=== PATIENT | female | born 1995 | race Caucasian/White ===

== ENCOUNTER 2018-03-08 10:40 | Emergency (ER) | payer MEDICAID ==
[2018-03-08 10:51] VITALS: RESP 18; TEMP 98.1; O2SAT 100
--- NOTE | 2018-03-08 11:42 | ED PDOC ---
HPI: Chest Pain Time Seen by Provider: 03/08/18 10:58 Chief Complaint (Nursing): Chest Pain Chief Complaint (Provider): chest pain History Per: Patient History/Exam Limitations: clinical condition Onset/Duration Of Symptoms: Days (2 weeks) Current Symptoms Are (Timing): Intermittent Episodes Quality: "Pain" Additional Complaint(s): 22 year old female with a history of hypothyroidism presents to the ED complaining of intermittent chest pain onset for 2 weeks. States the pain does not radiate anywhere and it is not associated with exertion. Reports of associated symptoms of shortness of breath when chest pain becomes worse. Denies dizziness, cough, palpitation, leg swelling or control pills. PMD: Sonja Lewis Past Medical History Reviewed: Historical Data, Nursing Documentation, Vital Signs Vital Signs: Last Vital Signs Temp 98.1 F 03/08/18 10:49 Pulse 68 03/08/18 14:12 Resp 18 03/08/18 14:12 BP 109/65 03/08/18 14:12 Pulse Ox 100 03/08/18 14:12 - Medical History PMH: Hyperthyroidism, Hypothyroidism - Surgical History Surgical History: No Surg Hx - Family History Family History: States: Unknown Family Hx - Social History Current smoker - smoking cessation education provided: No Alcohol: None Drugs: Denies - Immunization History Hx Tetanus Toxoid Vaccination: No Hx Influenza Vaccination: No Hx Pneumococcal Vaccination: No - Home Medications Home Medications: Ambulatory Orders Medication Instructions Recorded oxyCODONE/Acetaminophen [Percocet 1 tab PO QID PRN #10 tab 08/20/14 5/325 mg Tab] - Allergies Allergies/Adverse Reactions: Allergies Allergy/AdvReac Type Severity Reaction Status Date / Time No Known Allergies Allergy Verified 03/08/18 10:49 PARKER Risk Score for UA/NSTEMI - PARKER Risk Score Age > 64: NO 3 or more CAD Risk Factors: NO Known CAD (Stenosis greater than 50%): NO Aspirin use in past 7 days: NO Severe Angina: NO EKG ST changes greater than 0.5mm: NO Positive Cardiac Marker: NO PARKRE Score: 0 Risk %: 5% Wells Criteria for PE - Wells Criteria for Pulmonary Embolism Clinical Signs and Symptoms of DVT: No P.E is #1 Diagnosis, or Equally Likely: No Heart Rate >100: No Immobilization at least 3 days;Surgery previous 4 weeks: No Previous, objectively diagnosed PE or DVT: No Hemoptysis: No Malignancy w/treatment within 6 months, or palliative: No Total Score: 0 Review of Systems ROS Statement: Except As Marked, All Systems Reviewed And Found Negative Cardiovascular: Positive for: Chest Pain. Negative for: Palpitations Respiratory: Positive for: Shortness of Breath. Negative for: Cough, SOB with Exertion Musculoskeletal: Negative for: Leg Pain Neurological: Negative for: Dizziness Physical Exam - Reviewed Nursing Documentation Reviewed: Yes Vital Signs Reviewed: Yes - Physical Exam Appears: Positive for: Well, Non-toxic, No Acute Distress Head Exam: Positive for: ATRAUMATIC, NORMAL INSPECTION, NORMOCEPHALIC Skin: Positive for: Normal Color, Warm, Dry Eye Exam: Positive for: EOMI, Normal appearance, PERRL ENT: Positive for: Normal ENT Inspection Neck: Positive for: Normal, Painless ROM, Supple. Negative for: Decreased ROM Cardiovascular/Chest: Positive for: Regular Rate, Rhythm. Negative for: Murmur Respiratory: Positive for: Normal Breath Sounds. Negative for: Decreased Breath Sounds, Accessory Muscle Use, Respiratory Distress Gastrointestinal/Abdominal: Positive for: Normal Exam, Bowel Sounds, Soft. Negative for: Tenderness, Guarding, Rebound Back: Positive for: Normal Inspection. Negative for: L CVA Tenderness, R CVA Tenderness Extremity: Positive for: Normal ROM. Negative for: Tenderness, Pedal Edema, Deformity Neurologic/Psych: Positive for: Alert, Oriented (x3). Negative for: Motor/ Sensory Deficits - Laboratory Results Result Diagrams: 03/08/18 11:41 03/08/18 11:41 - ECG ECG: Positive for: Interpreted By Me, Viewed By Wa ECG Rhythm: Positive for: Normal QRS, Normal ST Segment, Sinus Rhythm Rate: 86 O2 Sat by Pulse Oximetry: 100 (RA) Pulse Ox Interpretation: Normal Medical Decision Making Medical Decision Making: Time: 1128 Initial Impression: chest pain Differential Diagnosis includes but is not limited to: pulmonary embolism, ACS, anxiety, musculoskeletal pain Initial Plan: --EKG --BMP --Troponin --CBC w/ Differential --Chest Two Views [RAD] --[facility] Laboratory --Reevaluation Time: 1205 HISTORY: chest pain COMPARISON: None. TECHNIQUE: Chest PA and lateral FINDINGS: LUNGS: No active pulmonary disease. PLEURA: No significant pleural effusion identified. No pneumothorax apparent. CARDIOVASCULAR: Normal. OSSEOUS STRUCTURES: No significant abnormalities. VISUALIZED UPPER ABDOMEN: Normal. OTHER FINDINGS: None. IMPRESSION: No active disease. Scribe Attestation: Documented by Alondra Jimenez, acting as a scribe for La Naranjo MD Provider Scribe Attestation: All medical record entries made by the Scribe were at my direction and personally dictated by me. I have reviewed the chart and agree that the record accurately reflects my personal performance of the history, physical exam, medical decision making, and the department course for this patient. I have also personally directed, reviewed, and agree with the discharge instructions and disposition. Disposition - Clinical Impression Clinical Impression: Chest pain - Patient ED Disposition Is Patient to be Admitted: No Doctor Will See Patient In The: Office Counseled Patient/Family Regarding: Studies Performed, Diagnosis, Need For Followup - Disposition Referrals: [facility] [Outside] Disposition: Routine/Home Disposition Time: 14:03 Condition: GOOD Additional Instructions: Take advil for pain. Follow up with your PCP in 2-3 days. Instructions: Chest Pain
[2018-03-08 11:54] LABS: BASO # 0.1 K/uL (0.0-0.2); BASO % 1.5 % (0.0-2.0); EOS # 0.2 K/uL (0.0-0.7); EOS % 4.8 % (0.0-4.0); HEMOGLOBIN 13.1 g/dL (12.0-16.0); LYMPH # 1.3 K/uL (1.0-4.3); LYMPH % 34.3 % (20.0-40.0); MEAN CORPUSCULAR HEMOGLOBIN 31.2 pg (27.0-31.0); MEAN CORPUSCULAR HGB CONC 34.3 g/dL (33.0-37.0); MEAN PLATELET VOLUME 8.2 fl (7.2-11.7); MONO # 0.4 K/uL (0.0-0.8); MONO % 9.4 % (0.0-10.0); NEUT # 1.9 K/uL (1.8-7.0); NRBC % 0.1 % (0.0-0.0); RBC 4.2 Mil/uL (3.80-5.20); RED CELL DISTRIBUTION WIDTH 13.2 % (11.5-14.5); WHITE BLOOD COUNT 3.8 K/uL (4.8-10.8)
[2018-03-08 12:00] LABS: BLOOD UREA NITROGEN 9 mg/dl (7-17); CALCIUM 9.5 mg/dL (8.4-10.2); GFR AFRICAN-AMERICAN > 60; GFR NON-AFRICAN AMERICAN > 60
--- NOTE | 2018-03-08 12:07 | RAD ---
HISTORY: chest pain COMPARISON: None. TECHNIQUE: Chest PA and lateral FINDINGS: LUNGS: No active pulmonary disease. PLEURA: No significant pleural effusion identified. No pneumothorax apparent. CARDIOVASCULAR: Normal. OSSEOUS STRUCTURES: No significant abnormalities. VISUALIZED UPPER ABDOMEN: Normal. OTHER FINDINGS: None. IMPRESSION: No active disease.
[2018-03-08 14:13] VITALS: BP 109/65
[2018-03-08 14:25] VITALS: PULSE 86
--- NOTE | 2018-03-08 15:08 | CARD ---
APPROVED REPORT EKG Measurement Heart [id number] <Conclusion> Normal sinus rhythm Possible Left atrial enlargement Borderline ECG
== END 2018-03-08 14:19 | disposition home or self-care (01) ==
LOC: H.ER 10:40
DX: R07.89 Other chest pain (principal); E03.9 Hypothyroidism, unspecified; E05.90 Thyrotoxicosis, unspecified without thyrotoxic crisis or storm

== ENCOUNTER 2018-07-09 17:55 | Emergency (ER) | payer MEDICAID ==
--- NOTE | 2018-07-09 18:39 | ED PDOC ---
Syncope/Near Syncope/Dizziness Time Seen by Provider: 07/09/18 18:01 Chief Complaint (Nursing): Dizziness/Lightheaded Chief Complaint (Provider): Dizziness/Lightheaded History Per: Patient, EMS History/Exam Limitations: no limitations Onset/Duration Of Symptoms: Mins Current Symptoms Are (Timing): Still Present Associated Symptoms Preceding Syncopal Episode: Lightheadedness Additional Complaint(s): 23 year old female presents to the ED via EMS complaining of nausea. Patient states she was driving when she felt light headed and nauseous and thought she was breathing fast. She also felt cramps in her hands and thought she will pass out. Patient pulled over to the side of the road and then presented to the ED. Symptoms have improved since arrival but still feels light headed. She indicates she feels nauseous since last night and today her period started. She reports that her last 2 cycles of her period have been heavier and longer. Patient has also been experiencing some stress with work and finances, recently, but denies outright anxiety or panic. She states she hasn't eaten all day and is somewhat hungry. PMD: Dr. Domingo Past Medical History Reviewed: Historical Data, Nursing Documentation, Vital Signs Vital Signs: Last Vital Signs Temp 98.7 F 07/09/18 17:56 Pulse 73 07/09/18 17:56 Resp 16 07/09/18 17:56 BP 118/71 07/09/18 17:56 Pulse Ox 96 07/09/18 17:56 - Medical History PMH: Anxiety, Hyperthyroidism, Hypothyroidism, Migraine - Surgical History Surgical History: No Surg Hx - Family History Family History: States: Other Other Family History: HTN and asthma - Social History Current smoker - smoking cessation education provided: No Alcohol: None Drugs: Denies - Immunization History Hx Tetanus Toxoid Vaccination: No Hx Influenza Vaccination: No Hx Pneumococcal Vaccination: No - Home Medications Home Medications: Ambulatory Orders Medication Instructions Recorded oxyCODONE/Acetaminophen [Percocet 1 tab PO QID PRN #10 tab 08/20/14 5/325 mg Tab] - Allergies Allergies/Adverse Reactions: Allergies Allergy/AdvReac Type Severity Reaction Status Date / Time No Known Allergies Allergy Verified 07/09/18 17:56 Review of Systems ROS Statement: Except As Marked, All Systems Reviewed And Found Negative (as per HPI) Gastrointestinal: Positive for: Nausea Neurological: Positive for: Other (Lightheaded) Psych: Negative for: Anxiety Physical Exam - Reviewed Nursing Documentation Reviewed: Yes Vital Signs Reviewed: Yes - Physical Exam Appears: Positive for: Well, Non-toxic, No Acute Distress Skin: Positive for: Warm, Dry, Pallor Eye Exam: Positive for: EOMI, PERRL ENT: Negative for: Pharyngeal Erythema, Tonsillar Exudate Neck: Positive for: Painless ROM, Supple Cardiovascular/Chest: Positive for: Regular Rate, Rhythm. Negative for: Murmur Respiratory: Positive for: Normal Breath Sounds. Negative for: Respiratory Distress Gastrointestinal/Abdominal: Positive for: Tenderness (mild epigastric tenderness to palpation). Negative for: Mass, Guarding, Rebound Back: Positive for: Normal Inspection. Negative for: Muscle Spasm Extremity: Positive for: Normal ROM. Negative for: Deformity Lymphatic: Negative for: Adenopathy Neurologic/Psych: Positive for: Alert. Negative for: Motor/Sensory Deficits - Laboratory Results Result Diagrams: 07/09/18 18:19 07/09/18 18:19 - ECG ECG Rhythm: Positive for: Normal QRS, Normal ST Segment, Sinus Rhythm (normal) Rate: 71 O2 Sat by Pulse Oximetry: 96 (RA) Pulse Ox Interpretation: Normal Medical Decision Making Medical Decision Making: Initial Impression: Near syncope; differential includes but not limited to stress, anxiety, electrolyte abnormality, thyroid dysfunction, anemia, dehydration Initial Plan: --Type and screen --ECG --CMP --Free T4 stat --Lipase stat --Magnesium stat --Phosphorous stat --T3 stat --TSH stat --ED urine --ED urine dipstick --CBC --Partial thromboplastin --Prothrombin time --Glucose Mother reporting that pt has not been eating well last few days and would like to give patient food to eat. Pt tolerated PO in ER. Labs unremarkable. Udip demonstrated ketones. Pt reports feeling better except for tremor. Pt still pending IV fluid hydration. Stable for dc post fluid hydration Scribe Attestation: Documented by Norman Ceron acting as a scribe for Nury Alegre MD. Provider Scribe Attestation: All medical record entries made by the Scribe were at my direction and personally dictated by me. I have reviewed the chart and agree that the record accurately reflects my personal performance of the history, physical exam, medical decision making, and the department course for this patient. I have also personally directed, reviewed, and agree with the discharge instructions and disposition. Disposition - Clinical Impression Clinical Impression: Dehydration - Disposition Referrals: Africa Domingo MD [Family Provider] - 07/11/18 (PLEASE FOLLOW UP WITH DR DOMINGO WEDNESDAY FOR REEVALUATION) Disposition: Routine/Home Disposition Time: 22:00 Condition: STABLE Additional Instructions: EAT AT LEAST 3 WELL BALANCED MEALS A DAY AND STAY WELL HYDRATED SEE YOUR DOCTOR WEDNESDAY FOR FURTHER EVALUATION Instructions: Dehydration, Adult (DC), Near Fainting (DC) Forms: [facility] ED School/Work Excuse
[2018-07-09 19:06] LABS: BASO # 0.1 K/uL (0.0-0.2); BASO % 0.6 % (0.0-2.0); EOS # 0.2 K/uL (0.0-0.7); EOS % 1.8 % (0.0-4.0); HEMOGLOBIN 13.6 g/dL (12.0-16.0); LYMPH % 9.8 % (20.0-40.0); MEAN CELL VOLUME 93.6 fl (81.0-99.0); MEAN CORPUSCULAR HEMOGLOBIN 31.7 pg (27.0-31.0); MEAN CORPUSCULAR HGB CONC 33.8 g/dL (33.0-37.0); MEAN PLATELET VOLUME 8.7 fl (7.2-11.7); MONO # 0.5 K/uL (0.0-0.8); MONO % 4.7 % (0.0-10.0); NEUT # 8.5 K/uL (1.8-7.0); NEUT % 83.1 % (50.0-75.0); PLATELET COUNT 258 K/uL (130-400); RBC 4.29 Mil/uL (3.80-5.20); RED CELL DISTRIBUTION WIDTH 13.9 % (11.5-14.5); WHITE BLOOD COUNT 10.3 K/uL (4.8-10.8)
[2018-07-09 19:17] LABS: PARTIAL THROMBOPLASTIN TIME 24.8 Seconds (25.6-37.1)
[2018-07-09 19:20] LABS: ALB/GLOB RATIO 1.3 (1.0-2.1); ALBUMIN 4.6 g/dL (3.5-5.0); ALT/SGPT 26 U/L (9-52); AST/SGOT 23 U/L (14-36); BLOOD UREA NITROGEN 12 mg/dl (7-17); CALCIUM 9.6 mg/dL (8.4-10.2); GFR NON-AFRICAN AMERICAN > 60; LIPASE 35 U/L (23-300)
[2018-07-09 19:33] LABS: INR 1.1; PROTHROMBIN TIME 12.3 Seconds (9.8-13.1)
[2018-07-09 19:44] LABS: EOSINOPHIL 3 % (0-7); LYMPHOCYTE 6 % (20-50); MONOCYTE 1 % (0-10); NEUTROPHIL 90 % (42-75); PLATELET ESTIMATE NORMAL (NORMAL); TOTAL CELLS COUNTED 100
[2018-07-09 19:48] LABS: T3 0.859 nmol/L (1.49-2.60)
[2018-07-09] MEDS ORDERED: Dextrose 5%/Lactated Ringer's 1,000 ML IV SCH (20:30)
[2018-07-10 01:47] VITALS: BP 124/78; PULSE 78; RESP 18; TEMP 98.2; O2SAT 99
--- NOTE | 2018-07-10 08:01 | CARD ---
APPROVED REPORT Date of service: 07/09/2018 EKG Measurement Heart [id number] ID [id number] <Conclusion> Normal sinus rhythm Normal ECG
== END 2018-07-09 22:30 | disposition home or self-care (01) ==
LOC: H.ER 17:55
DX: E86.0 Dehydration (principal); E03.9 Hypothyroidism, unspecified; E05.90 Thyrotoxicosis, unspecified without thyrotoxic crisis or storm; F41.9 Anxiety disorder, unspecified

== ENCOUNTER 2018-08-07 18:13 | Emergency (ER) | payer MEDICAID ==
[2018-08-07 18:31] VITALS: BP 111/62; PULSE 83; RESP 19; TEMP 98.2; O2SAT 100
== END 2018-08-07 22:57 | disposition left against medical advice (07) ==
LOC: H.ER 18:13
DX: Z02.89 Encounter for other administrative examinations (principal)